=== PATIENT | female | born 1960 | race American Indian/Alaskan Native ===

== ENCOUNTER 2020-11-14 12:34 | Observation (INO) | payer MEDICAID, OTHER ==
[2020-11-14 13:30] LABS: Basophils % (Auto) 0.5 % (0.0-1.8); Eosinophils # (Auto) 0.1 K/mm3 (0.0-0.4); Eosinophils % (Auto) 1.3 % (0.0-4.3); Hematocrit 41.8 % (30.3-42.9); Hemoglobin 14.2 gm/dl (10.1-14.3); Lymphocytes # (Auto) 1.6 K/mm3 (1.2-5.4); Lymphocytes % (Auto) 23.4 % (13.4-35.0); Mean Corpuscular HGB Conc 34 % (30-34); Mean Corpuscular Volume 91 fl (79-97); Monocytes # (Auto) 0.5 K/mm3 (0.0-0.8); Platelet Count 272 K/mm3 (140-440); Red Blood Count 4.59 M/mm3 (3.65-5.03); Red Cell Distribution Width 12.8 % (13.2-15.2)
[2020-11-14 13:37] LABS: INR 0.91 (0.87-1.13)
[2020-11-14 13:38] LABS: Partial Thromboplastin Time 26.9 Sec. (24.2-36.6)
[2020-11-14 13:48] LABS: Albumin 4.2 g/dL (3.9-5); Blood Urea Nitrogen 11 mg/dL (7-17); Calcium 9.2 mg/dL (8.4-10.2); Hemolysis Index 15
[2020-11-14 13:51] LABS: Alanine Aminotransferase < 5 units/L (7-56); BUN/Creatinine Ratio 18
[2020-11-14] MEDS ORDERED: SODIUM CHLORIDE 0.9% 1000 ML 1,000 ML IV ONE (20:36)
[2020-11-14] MEDS ORDERED: PANTOPRAZOLE 40 MG INJ IV ONE (20:36)
[2020-11-14 21:01] LABS: Hematocrit 40.5 % (30.3-42.9); Hemoglobin 14.1 gm/dl (10.1-14.3)
--- NOTE | 2020-11-14 22:12 | Emergency Department Report ---
HPI - General Chief Complaint: GI Bleed Time Seen by Provider: 11/14/20 20:22 - HPI HPI: 60-year-old female with no prior history other than a history of bleeding gastric ulcers presents from her doctor's office due to concerns for GI bleed. Patient states that for the past 4 days she is had generalized abdominal bloating and dull intermittent epigastric abdominal pain, which she describes as aching. It was intermittent and would last for 1 to 2 hours when it did occur. She tried to drink carbonated beverages to see if this would improve her symp toms. However, this morning she had a large bowel movement which was dark and tarry, after which she felt lightheaded. She went to see her primary care doctor, Dr. Edward who performed a rectal exam which was Hemoccult positive. He sent her to the emergency department for further evaluation. The patient is not on blood thinners. She denies use of NSAIDs or aspirin. Other than the 1 episode of dark tarry stool this morning, she has had no further episodes. She has minimal abdominal pain at this time. She does feel slightly lightheaded. She denies room spinning dizziness, vision change, headache, fever, chest pain, shortness of breath, nausea/vomiting, dysuria, hematuria, or any other complaints. ED Past Medical Hx - Past Medical History Previous Medical History?: Yes Additional medical history: Gi bleed in 2018 - Surgical History Past Surgical History?: No ED Review of Systems ROS: Stated complaint: DARK TARRY STOOL Other details as noted in HPI Constitutional: denies: chills, fever Eyes: denies: eye pain, vision change ENT: denies: throat pain, congestion Respiratory: denies: cough, shortness of breath Cardiovascular: denies: chest pain, palpitations Gastrointestinal: abdominal pain, melena. denies: nausea, vomiting, hematemesis, hematochezia Genitourinary: denies: dysuria, hematuria Musculoskeletal: denies: back pain, myalgia Skin: denies: rash Neurological: other (lightheadedness). denies: headache, weakness, numbness Physical Exam - Physical Exam Vital Signs: Vital Signs 11/14/20 12:54 Temperature 98.4 F Pulse Rate 94 H Respiratory 18 Rate Blood Pressure 138/82 [Right] O2 Sat by Pulse 99 Oximetry Physical Exam: GENERAL: Well developed and well nourished. No acute distress HEENT: Normocephalic. No obvious signs of trauma. Very dry mucous membranes. EYES: Extraocular movements are intact. Pupils are equal round and reactive to light bilaterally NECK: Supple. Trachea is midline. LUNGS: Nonlabored breathing. Equal chest rise bilaterally. Clear to auscultation bilaterally. HEART/CARDIOVASCULAR: Regular rate and rhythm. No murmurs or rubs. VASCULAR: 2+ peripheral pulses. Cap refill < 2 seconds ABDOMEN: Abdomen is soft and nondistended. There is minimal tenderness in the epigastrium but otherwise no tenderness, guarding, or rebound tenderness. RECTAL: Housing Counselor present. Empty rectal vault but with trace melanotic stool (hemoccult positive) SKIN: Skin is warm and dry NEURO: Patient is awake, alert, and oriented. family resource management professor II-XII grossly intact. No focal deficits. Normal motor and sensory exam throughout. Normal speech. MUSCULOSKELETAL: No obvious deformities. No significant tenderness. BACK/SPINE: No costovertebral angle tenderness. ED Course Vital Signs 11/14/20 12:54 Temperature 98.4 F Pulse Rate 94 H Respiratory 18 Rate Blood Pressure 138/82 [Right] O2 Sat by Pulse 99 Oximetry ED Medical Decision Making - Lab Data Result diagrams: 11/14/20 20:44 11/14/20 13:13 Lab Results 11/14/20 11/14/20 11/14/20 Range/Units 13:13 13:13 13:13 WBC 6.9 (4.5-11.0) K/mm3 RBC 4.59 (3.65-5.03) M/mm3 Hgb 14.2 (10.1-14.3) gm/dl Hct 41.8 (30.3-42.9) % MCV 91 (79-97) fl MCH 31 (28-32) pg MCHC 34 (30-34) % RDW 12.8 L (13.2-15.2) % Plt Count 272 (140-440) K/mm3 Lymph % (Auto) 23.4 (13.4-35.0) % [place] % (Auto) 7.0 (0.0-7.3) % Eos % (Auto) 1.3 (0.0-4.3) % Baso % (Auto) 0.5 (0.0-1.8) % Lymph # (Auto) 1.6 (1.2-5.4) K/mm3 [place] # (Auto) 0.5 (0.0-0.8) K/mm3 Eos # (Auto) 0.1 (0.0-0.4) K/mm3 Baso # (Auto) 0.0 (0.0-0.1) K/mm3 Seg Neutrophils % 67.8 (40.0-70.0) % Seg Neutrophils # 4.7 (1.8-7.7) K/mm3 PT 12.9 (12.2-14.9) Sec. INR 0.91 (0.87-1.13) APTT 26.9 (24.2-36.6) Sec. Sodium 137 (137-145) mmol/L Potassium 3.8 (3.6-5.0) mmol/L Chloride 101.5 (98-107) mmol/L Carbon Dioxide 21 L (22-30) mmol/L Anion Gap 18 mmol/L BUN 11 (7-17) mg/dL Creatinine 0.6 (0.6-1.2) mg/dL Estimated GFR > 60 ml/min BUN/Creatinine Ratio 18 % Glucose 87 (65-100) mg/dL Calcium 9.2 (8.4-10.2) mg/dL Total Bilirubin 1.00 (0.1-1.2) mg/dL AST 11 (5-40) units/L ALT < 5 L (7-56) units/L Alkaline Phosphatase 92 (35-129) units/L Total Protein 7.1 (6.3-8.2) g/dL Albumin 4.2 (3.9-5) g/dL Albumin/Globulin Ratio 1.4 % Lipase 21 (13-60) units/L 11/14/20 Range/Units 20:44 WBC (4.5-11.0) K/mm3 RBC (3.65-5.03) M/mm3 Hgb 14.1 (10.1-14.3) gm/dl Hct 40.5 (30.3-42.9) % MCV (79-97) fl MCH (28-32) pg MCHC (30-34) % RDW (13.2-15.2) % Plt Count (140-440) K/mm3 Lymph % (Auto) (13.4-35.0) % [place] % (Auto) (0.0-7.3) % Eos % (Auto) (0.0-4.3) % Baso % (Auto) (0.0-1.8) % Lymph # (Auto) (1.2-5.4) K/mm3 [place] # (Auto) (0.0-0.8) K/mm3 Eos # (Auto) (0.0-0.4) K/mm3 Baso # (Auto) (0.0-0.1) K/mm3 Seg Neutrophils % (40.0-70.0) % Seg Neutrophils # (1.8-7.7) K/mm3 PT (12.2-14.9) Sec. INR (0.87-1.13) APTT (24.2-36.6) Sec. Sodium (137-145) mmol/L Potassium (3.6-5.0) mmol/L Chloride (98-107) mmol/L Carbon Dioxide (22-30) mmol/L Anion Gap mmol/L BUN (7-17) mg/dL Creatinine (0.6-1.2) mg/dL Estimated GFR ml/min BUN/Creatinine Ratio % Glucose (65-100) mg/dL Calcium (8.4-10.2) mg/dL Total Bilirubin (0.1-1.2) mg/dL AST (5-40) units/L ALT (7-56) units/L Alkaline Phosphatase (35-129) units/L Total Protein (6.3-8.2) g/dL Albumin (3.9-5) g/dL Albumin/Globulin Ratio % Lipase (13-60) units/L - EKG Data -: EKG Interpreted by Nc - EKG Data 11/14/20 22:30 Normal sinus rhythm. Normal axis. Normal intervals. No ectopy. No significant ST segment or T wave abnormalities. - Medical Decision Making 60-year-old female with history of GI bleed related to bleeding gastric ulcers presents from her doctor's office due to Hemoccult positive stools and lightheadedness today. Patient has been having abdominal pain and bloating for the past 4 days. She is not on blood thinners and denies use of NSAIDs or alcohol. Initial assessment, she is afebrile and with normal vital signs. Physical examination reveals very dry mucous membranes. The abdomen is soft with very minimal epigastric tenderness, but otherwise with no guarding or rebound. Rectal exam reveals scant melanotic stool which is Hemoccult positive. Labs were drawn in triage and reveal no significant leukocytosis or anemia and hemoglobin of 14.2. There are no significant electrolyte abnormalities and kidney function is normal. Given that it has been a significant amount of time, 8 hours, since labs were drawn I have ordered a repeat H&H. We will give 1 L of IV fluids and 80 mg of IV Protonix and reassess. On repeat assessment at 9:40 PM, the patient reports that she is feeling much better. IV fluids are running. Repeat H&H is stable. At 9:54 PM, I spoke with Dr. Watson of gastroenterology regarding the case. He states he agrees with the current management and will be happy to consult and provide further recommendations in the morning. At 10:15 PM, I spoke with Dr. Quiroga regarding the case and he accepts the patient for admission. He will assume care at this time. Urinalysis is still pending. Critical care attestation.: If time is entered above; I have spent that time in minutes in the direct care of this critically ill patient, excluding procedure time. ED Disposition Clinical Impression: Dehydration GI bleed Qualifiers: GI bleed type/associated pathology: melena Qualified Code(s): K92.1 - Melena Disposition: OP ADMIT IP TO THIS HOSP Is pt being admited?: Yes Condition: Stable
[2020-11-14] MEDS ORDERED: ACETAMINOPHEN 325 MG TAB PO PRN (22:45)
[2020-11-14] MEDS ORDERED: ONDANSETRON 4 MG/2 ML INJ IV PRN (22:45)
--- NOTE | 2020-11-14 22:53 | History and Physical Report ---
History of Present Illness Date of examination: 11/14/20 Date of admission: 11/14/20 Chief complaint: GI bleeding History of present illness: 60-year-old female with history of bleeding gastric ulcers presents from her doctor's office due to concerns for GI bleed. Patient complaint of generalized abdominal bloating and dull intermittent epigastric abdominal pain, which she describes as aching for the last 4 days. It was intermittent and would last for 1 to 2 hours when it did occur. She tried to drink carbonated beverages to see if this would improve her symptoms. However, this morning she had a large bowel movement which was dark and tarry, after which she felt lightheaded. She went to see her primary care doctor, Dr. Edward who performed a rectal exam which was Hemoccult positive. He sent her to the emergency department for further evaluation. The patient is not on blood thinners. She denies use of NSAIDs or aspirin. Other than the 1 episode of dark tarry stool this morning, she has had no further episodes. She has minimal abdominal pain at this time. She does feel slightly lightheaded. She denies room spinning dizziness, vision change, headache, fever, chest pain, shortness of breath, nausea/vomiting, dysuria, hematuria, or any other complaints. In the emergency room patient hemoglobin is 14.1 and hematocrit 40.5 Past History Past Medical History: other (History of GI bleeding) Medications and Allergies Allergies Allergy/AdvReac Type Severity Reaction Status Date / Time No Known Allergies Allergy Unverified 11/14/20 12:52 Active Meds: Active Medications Acetaminophen (Acetaminophen 325 Mg Tab) 650 mg PO Q4H PRN PRN Reason: Pain MILD(1-3)/Fever >100.5/BAR Albuterol/Ipratropium (Ipratropium/Albuterol Sulfate 3 Ml Ampul.Neb) 1 ampul IH Q6HRT RACH Dextrose/Sodium Chloride (D5/0.45ns) 1,000 mls @ 100 mls/hr IV DIRECT RACH Ondansetron HCl (Ondansetron 4 Mg/2 Ml Inj) 4 mg IV Q8H PRN PRN Reason: Nausea And Vomiting Pantoprazole Sodium (Pantoprazole 40 Mg Inj) 40 mg IV BID RACH Sodium Chloride (Sodium Chloride 0.9% 10 Ml Flush Syringe) 10 ml IV BID RACH Sodium Chloride (Sodium Chloride 0.9% 10 Ml Flush Syringe) 10 ml IV PRN PRN PRN Reason: LINE FLUSH Review of Systems Constitutional: other (Lightheadedness) Gastrointestinal: melena, other (Dark tarry stool) Exam - Constitutional Vitals: Temp Pulse Resp BP Pulse Ox 98.4 F 94 H 18 138/82 99 11/14/20 12:54 11/14/20 12:54 11/14/20 12:54 11/14/20 12:54 11/14/20 12:54 General appearance: Present: no acute distress, well-nourished - EENT Eyes: Present: PERRL ENT: hearing intact, clear oral mucosa - Neck Neck: Present: supple, normal ROM - Respiratory Respiratory effort: normal Respiratory: bilateral: CTA - Cardiovascular Heart Sounds: Present: S1 & S2. Absent: rub, click - Extremities Extremities: pulses symmetrical, No edema Peripheral Pulses: within normal limits - Abdominal General gastrointestinal: Present: soft, non-tender, non-distended, normal bowel sounds Female genitourinary: Present: normal - Integumentary Integumentary: Present: clear, warm, dry - Musculoskeletal Musculoskeletal: gait normal, strength equal bilaterally - Psychiatric Psychiatric: appropriate mood/affect, intact judgment & insight - Neurologic Neurologic: CNII-XII intact, moves all extremities Results - Labs CBC & Chem 7: 11/14/20 20:44 11/14/20 13:13 Labs: Laboratory Last Values WBC 6.9 K/mm3 (4.5-11.0) 11/14/20 13:13 RBC 4.59 M/mm3 (3.65-5.03) 11/14/20 13:13 Hgb 14.1 gm/dl (10.1-14.3) 11/14/20 20:44 Hct 40.5 % (30.3-42.9) 11/14/20 20:44 MCV 91 fl (79-97) 11/14/20 13:13 MCH 31 pg (28-32) 11/14/20 13:13 MCHC 34 % (30-34) 11/14/20 13:13 RDW 12.8 % (13.2-15.2) L 11/14/20 13:13 Plt Count 272 K/mm3 (140-440) 11/14/20 13:13 Lymph % (Auto) 23.4 % (13.4-35.0) 11/14/20 13:13 [place] % (Auto) 7.0 % (0.0-7.3) 11/14/20 13:13 Eos % (Auto) 1.3 % (0.0-4.3) 11/14/20 13:13 Baso % (Auto) 0.5 % (0.0-1.8) 11/14/20 13:13 Lymph # (Auto) 1.6 K/mm3 (1.2-5.4) 11/14/20 13:13 [place] # (Auto) 0.5 K/mm3 (0.0-0.8) 11/14/20 13:13 Eos # (Auto) 0.1 K/mm3 (0.0-0.4) 11/14/20 13:13 Baso # (Auto) 0.0 K/mm3 (0.0-0.1) 11/14/20 13:13 Seg Neutrophils % 67.8 % (40.0-70.0) 11/14/20 13:13 Seg Neutrophils # 4.7 K/mm3 (1.8-7.7) 11/14/20 13:13 PT 12.9 Sec. (12.2-14.9) 11/14/20 13:13 INR 0.91 (0.87-1.13) 11/14/20 13:13 APTT 26.9 Sec. (24.2-36.6) 11/14/20 13:13 Sodium 137 mmol/L (137-145) 11/14/20 13:13 Potassium 3.8 mmol/L (3.6-5.0) 11/14/20 13:13 Chloride 101.5 mmol/L (98-107) 11/14/20 13:13 Carbon Dioxide 21 mmol/L (22-30) L 11/14/20 13:13 Anion Gap 18 mmol/L 11/14/20 13:13 BUN 11 mg/dL (7-17) 11/14/20 13:13 Creatinine 0.6 mg/dL (0.6-1.2) 11/14/20 13:13 Estimated GFR > 60 ml/min 11/14/20 13:13 BUN/Creatinine Ratio 18 % 11/14/20 13:13 Glucose 87 mg/dL (65-100) 11/14/20 13:13 Calcium 9.2 mg/dL (8.4-10.2) 11/14/20 13:13 Total Bilirubin 1.00 mg/dL (0.1-1.2) 11/14/20 13:13 AST 11 units/L (5-40) 11/14/20 13:13 ALT < 5 units/L (7-56) L 11/14/20 13:13 Alkaline Phosphatase 92 units/L (35-129) 11/14/20 13:13 Total Protein 7.1 g/dL (6.3-8.2) 11/14/20 13:13 Albumin 4.2 g/dL (3.9-5) 11/14/20 13:13 Albumin/Globulin Ratio 1.4 % 11/14/20 13:13 Lipase 21 units/L (13-60) 11/14/20 13:13 Microbiology: Microbiology 11/14/20 21:43 Stool Stool Occult Blood (TIFFANIE) - Final Assessment and Plan VTE prophylaxis?: Mechanical Plan of care discussed with patient/family: Yes - Patient Problems (1) GI bleeding Current Visit: Yes Status: Acute Plan to address problem: Admit the patient to the medical floor telemetry. N.p.o. D5 half-normal saline at the rate of 100 cc/h. Protonix 40 mg IV every 12 hours. Zofran 4 million IV every 6 hours as needed. Will consult GI Dr. Watson to see the patient in co nsultation. Recheck CBC BMP in the morning (2) Abdominal pain Current Visit: Yes Status: Acute Plan to address problem: Protonix 40 mg IV every 12 hours. Morphine 1 to 2 mg IV every 4 hours as needed. We will monitor the patient closely (3) Lightheadedness Current Visit: Yes Status: Acute Plan to address problem: Most likely secondary to GI bleeding. D5 half-normal saline at the rate of 100 cc/h. Protonix 40 mg IV every 12 hours. We will recheck CBC in the morning. (4) DVT prophylaxis Current Visit: Yes Status: Acute Plan to address problem: SCD for DVT prophylaxis. Protonix 40 mg IV every 12 hours for GI prophylaxis. Patient is a full code
[2020-11-14] MEDS ORDERED: D5W/0.45% NACL 1,000 ML IV SCH (23:00)
[2020-11-15] MEDS ORDERED: HYDROmorphone 1 MG/1 ML INJ IV PRN (03:06)
[2020-11-15 05:16] LABS: Basophils % (Auto) 0.5 % (0.0-1.8); Eosinophils # (Auto) 0.1 K/mm3 (0.0-0.4); Eosinophils % (Auto) 1.9 % (0.0-4.3); Hematocrit 35.7 % (30.3-42.9); Hemoglobin 12.3 gm/dl (10.1-14.3); Lymphocytes # (Auto) 1.9 K/mm3 (1.2-5.4); Lymphocytes % (Auto) 32.7 % (13.4-35.0); Mean Corpuscular HGB Conc 34 % (30-34); Mean Corpuscular Volume 91 fl (79-97); Monocytes # (Auto) 0.4 K/mm3 (0.0-0.8); Monocytes % (Auto) 7.4 % (0.0-7.3); Platelet Count 215 K/mm3 (140-440); Red Blood Count 3.93 M/mm3 (3.65-5.03)
[2020-11-15 05:30] LABS: Blood Urea Nitrogen 11 mg/dL (7-17); Calcium 8.9 mg/dL (8.4-10.2); Hemolysis Index 17
[2020-11-15 05:34] LABS: BUN/Creatinine Ratio 18
[2020-11-15] MEDS: IPRATROPIUM/ALBUTEROL SULFATE 3 ML AMPUL.NEB IH SCH ×3 (06:00→13:50)
[2020-11-15 07:47] LABS: Bilirubin,Urine NEG (Negative); Blood,Urine NEG (Negative); Color,Urine Yellow (Yellow); Mucus,Urine 3+ /HPF; Renal Epithelial Cells,Urine 1 /LPF; Urobilinogen,Urine < 2.0 mg/dL (<2.0)
[2020-11-15 08:12] VITALS: BP 92/59
--- NOTE | 2020-11-15 09:58 | Electrocardiograph Report ---
[facility] Test Date: 2020-11-14 Test Time: 21:24:04 Pat Name: SUHAS LIRA Department: Room: A477 1 Gender: F Coroner/Medical Examiner: MARIA LUISA : 1960 Requested By: VICKY LAUREANO Order Number: [id number] Reading MD: Sergio Boudreaux Measurements Intervals [place] Rate: 68 P: 45 VT: 123 QRS: 28 QRSD: 85 T: QT: 416 QTc: 444 Interpretive Statements Sinus rhythm No previous ECG available for comparison Electronically Signed On 11-15-2020 9:58:08 EDT by Sergio Boudreaux
[2020-11-15] MEDS ORDERED: PANTOPRAZOLE 40 MG INJ IV SCH (10:00)
--- NOTE | 2020-11-15 10:42 | Progress Note ---
Assessment and Plan Assessment and plan: (1) GI bleeding Current Visit: Yes Status: Acute Plan to address problem: Admit the patient to the medical floor telemetry. N.p.o. D5 half-normal saline at the rate of 100 cc/h. Protonix 40 mg IV every 12 hours. Zofran 4 million IV every 6 hours as needed. Will consult GI Dr. Watson to see the patient in consultation. Recheck CBC BMP in the morning (2) Abdominal pain Current Visit: Yes Status: Acute Plan to address problem: Protonix 40 mg IV every 12 hours. Morphine 1 to 2 mg IV every 4 hours as needed. We will monitor the patient closely (3) Lightheadedness Current Visit: Yes Status: Acute Plan to address problem: Most likely secondary to GI bleeding. D5 half-normal saline at the rate of 100 cc/h. Protonix 40 mg IV every 12 hours. We will recheck CBC in the morning. (4) DVT prophylaxis Current Visit: Yes Status: Acute Plan to address problem: SCD for DVT prophylaxis. Protonix 40 mg IV every 12 hours for GI prophylaxis. Patient is a full code Hospitalist Physical - Constitutional Vitals: Temp Pulse Resp BP Pulse Ox 98.2 F 64 18 92/59 98 11/15/20 07:14 11/15/20 08:35 11/15/20 08:35 11/15/20 08:01 11/15/20 08:56 General appearance: Present: no acute distress, well-nourished Results - Labs CBC & Chem 7: 11/15/20 04:58 11/15/20 04:58 Labs: Laboratory Last Values WBC 5.9 K/mm3 (4.5-11.0) 11/15/20 04:58 RBC 3.93 M/mm3 (3.65-5.03) 11/15/20 04:58 Hgb 12.3 gm/dl (10.1-14.3) 11/15/20 04:58 Hct 35.7 % (30.3-42.9) 11/15/20 04:58 MCV 91 fl (79-97) 11/15/20 04:58 MCH 31 pg (28-32) 11/15/20 04:58 MCHC 34 % (30-34) 11/15/20 04:58 RDW 13.0 % (13.2-15.2) L 11/15/20 04:58 Plt Count 215 K/mm3 (140-440) 11/15/20 04:58 Lymph % (Auto) 32.7 % (13.4-35.0) 11/15/20 04:58 [place] % (Auto) 7.4 % (0.0-7.3) H 11/15/20 04:58 Eos % (Auto) 1.9 % (0.0-4.3) 11/15/20 04:58 Baso % (Auto) 0.5 % (0.0-1.8) 11/15/20 04:58 Lymph # (Auto) 1.9 K/mm3 (1.2-5.4) 11/15/20 04:58 [place] # (Auto) 0.4 K/mm3 (0.0-0.8) 11/15/20 04:58 Eos # (Auto) 0.1 K/mm3 (0.0-0.4) 11/15/20 04:58 Baso # (Auto) 0.0 K/mm3 (0.0-0.1) 11/15/20 04:58 Seg Neutrophils % 57.5 % (40.0-70.0) 11/15/20 04:58 Seg Neutrophils # 3.4 K/mm3 (1.8-7.7) 11/15/20 04:58 PT 12.9 Sec. (12.2-14.9) 11/14/20 13:13 INR 0.91 (0.87-1.13) 11/14/20 13:13 APTT 26.9 Sec. (24.2-36.6) 11/14/20 13:13 Sodium 138 mmol/L (137-145) 11/15/20 04:58 Potassium 3.6 mmol/L (3.6-5.0) 11/15/20 04:58 Chloride 103.5 mmol/L (98-107) 11/15/20 04:58 Carbon Dioxide 25 mmol/L (22-30) 11/15/20 04:58 Anion Gap 13 mmol/L 11/15/20 04:58 BUN 11 mg/dL (7-17) 11/15/20 04:58 Creatinine 0.6 mg/dL (0.6-1.2) 11/15/20 04:58 Estimated GFR > 60 ml/min 11/15/20 04:58 BUN/Creatinine Ratio 18 % 11/15/20 04:58 Glucose 84 mg/dL (65-100) 11/15/20 04:58 Calcium 8.9 mg/dL (8.4-10.2) 11/15/20 04:58 Total Bilirubin 1.00 mg/dL (0.1-1.2) 11/14/20 13:13 AST 11 units/L (5-40) 11/14/20 13:13 ALT < 5 units/L (7-56) L 11/14/20 13:13 Alkaline Phosphatase 92 units/L (35-129) 11/14/20 13:13 Total Protein 7.1 g/dL (6.3-8.2) 11/14/20 13:13 Albumin 4.2 g/dL (3.9-5) 11/14/20 13:13 Albumin/Globulin Ratio 1.4 % 11/14/20 13:13 Lipase 21 units/L (13-60) 11/14/20 13:13 Urine Color Yellow (Yellow) 11/15/20 07:18 Urine Turbidity Slightly-cloudy (Clear) 11/15/20 07:18 Urine pH 5.0 (5.0-7.0) 11/15/20 07:18 Ur Specific [place] 1.031 (1.003-1.030) H 11/15/20 07:18 Urine Protein 30 mg/dl mg/dL (Negative) 11/15/20 07:18 Urine Glucose (UA) Neg mg/dL (Negative) 11/15/20 07:18 Urine Ketones 20 mg/dL (Negative) 11/15/20 07:18 Urine Blood Neg (Negative) 11/15/20 07:18 Urine Nitrite Neg (Negative) 11/15/20 07:18 Urine Bilirubin Neg (Negative) 11/15/20 07:18 Urine Urobilinogen < 2.0 mg/dL (<2.0) 11/15/20 07:18 Ur Leukocyte Esterase Sm (Negative) 11/15/20 07:18 Urine WBC (Auto) 14.0 /HPF (0.0-6.0) H 11/15/20 07:18 Urine RBC (Auto) 2.0 /HPF (0.0-6.0) 11/15/20 07:18 U Epithel Cells (Auto) 5.0 /HPF (0-13.0) 11/15/20 07:18 Ur Renal Epithelial Cell 1 /LPF 11/15/20 07:18 Urine Mucus 3+ /HPF 11/15/20 07:18 Microbiology: Microbiology 11/14/20 21:43 Stool Stool Occult Blood (TIFFANIE) - Final Active Medications - Current Medications Current Medications: Generic Name Dose Route Start Last Admin Trade Name Freq PRN Reason Stop Dose Admin Acetaminophen 650 mg 11/14/20 22:45 Acetaminophen 325 Mg Tab PO Q4H PRN Pain MILD(1-3)/Fever >100.5/BAR Albuterol/Ipratropium 1 ampul 11/15/20 02:00 11/15/20 08:35 Ipratropium/Albuterol Sulfate 3 Ml Ampul.Neb IH 1 ampul Q6HRT RACH Administration Hydromorphone HCl 0.5 mg 11/15/20 03:06 Hydromorphone 1 Mg/1 Ml Inj IV ONCE PRN Pain , Severe (7-10) Dextrose/Sodium Chloride 1,000 mls @ 100 mls/hr 11/14/20 23:00 11/15/20 09:12 D5/0.45ns IV 100 mls/hr DIRECT RACH Administration Ondansetron HCl 4 mg 11/14/20 22:45 Ondansetron 4 Mg/2 Ml Inj IV Q8H PRN Nausea And Vomiting Pantoprazole Sodium 40 mg 11/15/20 10:00 11/15/20 09:12 Pantoprazole 40 Mg Inj IV 40 mg BID RACH Administration Sodium Chloride 10 ml 11/15/20 10:00 11/15/20 09:13 Sodium Chloride 0.9% 10 Ml Flush Syringe IV 10 ml BID RACH Administration Sodium Chloride 10 ml 11/14/20 22:45 Sodium Chloride 0.9% 10 Ml Flush Syringe IV PRN PRN LINE FLUSH
--- NOTE | 2020-11-15 15:34 | Discharge Summary ---
Providers - Providers Date of Admission: 11/14/20 22:18 Date of discharge: 11/15/20 Attending physician: MONICA LOPEZ 11/14/20 21:54 Consult to Physician [CONS] Routine Comment: Consulting Provider: BRENNEN TITUS Physician Instructions: Reason For Exam: GI bleed Primary care physician: FRANCIE LEÓN Hospitalization Reason for admission: GI bleeding Condition: Stable Hospital course: 60-year-old female patient with past medical history of GI bleeding was sent from doctor's office with history of GI bleeding abdominal pain and abdominal bloating of 3 to 4 days duration worse for the last for the last 2 to 3 hours prior to presentation. Patient was evaluated and admitted to the hospital placed n.p.o. status consulted GI, GI scheduled for endoscopy on 11/15/2020. However on 11/15/2020 patient decided not to wait for endoscopy and wanted to leave the hospital AGAINST MEDICAL ADVICE and going see her private GI who does not come to this hospital patient was advised not to go AGAINST MEDICAL ADVICE without getting tested, risks and consequences and complications of severe GI bleeding were explained to her, she verbalized understanding however insisted on leaving AMA signed the necessary papers and left the hospital. Patient strongly advised to seek medical attention immediately if she should have new episodes of GI bleeding, and also advised to see GI for further evaluation management, she verbalized understanding and plan of care reviewed with the patient and his and her nurse plan of care reviewed with the patient and her nurse. Diagnosis; --Acute GI bleeding: GI recommended endoscopy --Abdominal pain :GI recommended endoscopy --Hypotension; secondary to GI bleeding -- Lightheadedness: Due to GI bleeding, GI recommended endoscopy, Patient left AMA Disposition: [id number] LEFT AGAINST MED ADVICE Final Discharge Diagnosis (Prints w/discharge instructions): Acute GI bleeding. Abdominal pain. Lightheadedness. Hypotension. Patient left AMA Time spent for discharge: 35 min Core Measure Documentation - Palliative Care Palliative Care/ Comfort Measures: Not Applicable - Core Measures Any of the following diagnoses?: none Exam - Constitutional Vitals: Temp Pulse Resp BP Pulse Ox 98.2 F 66 18 92/59 97 11/15/20 07:14 11/15/20 11:11 11/15/20 11:11 11/15/20 08:01 11/15/20 11:11 General appearance: Present: no acute distress, well-nourished - EENT Eyes: Present: PERRL, EOM intact - Neck Neck: Present: supple, normal ROM - Respiratory Respiratory effort: normal Respiratory: bilateral: diminished, negative: rales, rhonchi, wheezing - Cardiovascular Rhythm: regular Heart Sounds: Present: S1 & S2 - Extremities Extremities: no ischemia, No edema - Abdominal General gastrointestinal: Present: soft, non-tender, non-distended, normal bowel sounds - Integumentary Integumentary: Present: clear, warm - Musculoskeletal Musculoskeletal: strength equal bilaterally - Psychiatric Psychiatric: appropriate mood/affect, agitated - Neurologic Neurologic: CNII-XII intact, moves all extremities Plan Additional Instructions: Patient left AMA Follow up with: FRANCIE LEÓN MD [Primary Care Provider] - 3-5 Days Forms: AMA Form
== END 2020-11-15 13:57 | disposition left against medical advice (07) ==
LOC: ED 12:34 → 4A 22:18
PROVIDERS: ADMIT Hospitalist; ATTEND Internal Medicine
DX: K92.2 Gastrointestinal hemorrhage, unspecified (principal); R42 Dizziness and giddiness; R10.9 Unspecified abdominal pain; E86.0 Dehydration; R06.02 Shortness of breath
CPT/HCPCS: 36415; 80048; 80053; 81001; 82271; 83690; 85014; 85018; 85025; 85610; 85730; 87086; 93005; 94640; 96361; 96374; 96376; 99284; C9113; G0378; J7030; J7070